=== PATIENT | male | born 1970 | race Caucasian/White ===

== ENCOUNTER 2019-11-02 19:03 | Emergency (ER) | payer OTHER ==
[~2019-11-02] VITALS: Ht 180.3 cm; Wt 83.9 kg
== END 2019-11-02 22:41 | disposition home or self-care (01) ==
LOC: ER 19:03
DX: K52.89 Other specified noninfective gastroenteritis and colitis (principal); Z03.818 Encounter for observation for suspected exposure to other biological agents ruled out; R10.84 Generalized abdominal pain

== ENCOUNTER 2024-02-28 16:26 | Emergency (ER) | payer OTHER ==
[~2024-02-28] VITALS: Ht 180.3 cm; Wt 90.7 kg
[2024-02-28] MEDS ORDERED: 0.9 % SODIUM CHLORIDE 1,000 ML IV STA (17:08)
[2024-02-28 17:30] LABS: HEMATOCRIT 42.8 % (39.0-48.0); HEMOGLOBIN 14.9 g/dL (13-16.00); MEAN CELL VOLUME 87.4 fL (80.0-100.00); MEAN CORPUSCULAR HEMOGLOBIN 30.3 pg (27.00-32.0); MEAN CORPUSCULAR HGB CONC 34.7 g/dl (32.0-36.0); PLATELET COUNT 217 K/uL (150-450); RED CELL DISTRIBUTION WIDTH 13.4 % (11.5-14.5)
[2024-02-28 17:56] LABS: CALCIUM 9.1 mg/dL (8.5-10.1); CREATININE SERUM 1.06 mg/dL (0.70-1.30); GFR 73.08; POTASSIUM 3.87 mEq/L (3.5-5.1)
[2024-02-28] MEDS ORDERED: TAMSULOSIN HCL 0.4 MG CAP PO ONE (18:00)
[2024-02-28 18:09] LABS: URINE APPEARANCE Clear; URINE BILIRRUBIN Negative (NEGATIVE); URINE BLOOD Large; URINE COLOR Yellow; URINE GLUCOSE Negative (NEGATIVE); URINE KETONE Negative (NEGATIVE); URINE LEUKOCYTE Negative; URINE NITRATE Negative; URINE PROTEIN Negative (NEGATIVE); URINE UROBILINOGEN 0.2 E.U./dl
[2024-02-28 18:13] LABS: URINE BACTERIA 18.8 uL (0.0-1933); URINE EPITHELIAL CELLS 4.9 uL (0.0-38.8); URINE RBC 104.4 uL (0.0-20.8)
[2024-02-28 18:16] LABS: URINE CAST 0.91 uL (0.0-1.40)
== END 2024-02-28 19:24 | disposition home or self-care (01) ==
LOC: ER 16:26
PROVIDERS: Emergency Medicine
DX: K52.89 Other specified noninfective gastroenteritis and colitis (principal); Z88.6 Allergy status to analgesic agent; N23 Unspecified renal colic; N20.1 Calculus of ureter; N20.0 Calculus of kidney

== ENCOUNTER 2024-06-25 17:11 | Emergency (ER) | payer OTHER ==
[~2024-06-25] VITALS: Ht 180.3 cm; Wt 90.7 kg
[2024-06-25] MEDS ORDERED: TAMSULOSIN HCL 0.4 MG CAP PO ONE (18:00)
[2024-06-25] MEDS ORDERED: FAMOtidine 10 MG/ML (4ML VIAL) IV PUSH ONE (18:00)
[2024-06-25] MEDS ORDERED: TRAMADOL HCL 50 MG TABLET PO ONE (18:00)
[2024-06-25] MEDS ORDERED: CEFTRIAXONE SODIUM 1,000 MG VIAL IV ONE (18:00)
[2024-06-25] MEDS ORDERED: MORPHINE SULFATE 2 MG/ML SYRINGE IV ONE (18:15)
[2024-06-25] MEDS ORDERED: ONDANSETRON HCL 2 MG/ML VIAL IV ONE (18:15)
[2024-06-25 18:21] LABS: HEMOGLOBIN 14.7 g/dL (13-16.00); MEAN CORPUSCULAR HEMOGLOBIN 29.8 pg (27.00-32.0); MEAN CORPUSCULAR HGB CONC 34.3 g/dl (32.0-36.0); PLATELET COUNT 226 K/uL (150-450); RED BLOOD COUNT 4.94 M/uL (4.00-6.00); RED CELL DISTRIBUTION WIDTH 14.1 % (11.5-14.5)
[2024-06-25 18:44] LABS: ALBUMIN 3.9 gm/dL (3.4-5.0); BILIRUBIN TOTAL 0.37 mg/dL (0.3-1.2); CALCIUM 9.2 mg/dL (8.5-10.1); CREATININE SERUM 1.18 mg/dL (0.70-1.30); GFR 64.33; GLOBULINA 3.5 G/DL (2.4-3.5); POTASSIUM 4.04 mEq/L (3.5-5.1); TOTAL PROTEIN 7.4 gm/dL (6.4-8.2)
[2024-06-25 19:03] LABS: INR 1.04; PARTIAL THROMBOPLASTIN TIME 24.9 SECONDS (22.0-34.0); PROTHROMBIN TIME 11.3 SECONDS (9.0-11.5)
[2024-06-25 19:33] LABS: URINE APPEARANCE Cloudy; URINE BILIRRUBIN Negative (NEGATIVE); URINE BLOOD Large; URINE COLOR Yellow; URINE GLUCOSE Negative (NEGATIVE); URINE KETONE Negative (NEGATIVE); URINE LEUKOCYTE Negative; URINE NITRATE Negative; URINE PROTEIN Trace (NEGATIVE); URINE UROBILINOGEN 0.2 E.U./dl
[2024-06-25 19:36] LABS: URINE BACTERIA 69.7 uL (0.0-1933); URINE EPITHELIAL CELLS 3.3 uL (0.0-38.8); URINE RBC 289.4 uL (0.0-20.8)
[2024-06-25 19:48] LABS: URINE CAST 0.14 uL (0.0-1.40)
[2024-06-25] MEDS ORDERED: ZOFRAN8 MG PO (20:39)
[2024-06-25] MEDS ORDERED: TAMS0.4C PO (20:39)
[2024-06-25] MEDS ORDERED: BACTRIM DS TAB1 EACH PO (20:39)
[2024-06-25] MEDS ORDERED: NORFLEX100MG PO (20:39)
[2024-06-25] MEDS ORDERED: PEPCID AC20 MG PO (20:39)
== END 2024-06-25 20:49 | disposition home or self-care (01) ==
LOC: ER 17:14
PROVIDERS: General Practice
DX: N20.2 Calculus of kidney with calculus of ureter (principal); Z88.6 Allergy status to analgesic agent

== ENCOUNTER 2024-12-16 10:49 | Emergency (ER) | payer OTHER ==
[~2024-12-16] VITALS: Ht 180.3 cm; Wt 88.5 kg
[~2024-12-16 10:49] MED LIST: BACTRIM DS TAB1 EACH PO; NORFLEX100MG PO; PEPCID AC20 MG PO; TAMS0.4C PO; ZOFRAN8 MG PO
[2024-12-16] MEDS ORDERED: MORPHINE SULFATE 4 MG/ML CARTRIDGE IV STA (13:03)
[2024-12-16] MEDS ORDERED: FAMOTIDINE/PF 20 MG/2 ML VIAL IV STA (13:03)
[2024-12-16 13:43] LABS: BASO % 0.5 % (0.1-1.2); EOS # 0.30 (0.04-0.54); EOS % 2.6 % (0.7-7.0); LYMPH # 1.62 (1.18-3.74); LYMPH % 14.1 % (19.3-53.1); MEAN PLATELET VOLUME 10.30 fl (9.4-12.4); MONO # 0.89 (0.24-0.82); MONO % 7.7 % (4.7-12.5); NEUT # 8.62 (1.56-6.13); NEUT % 74.8 % (34.0-71.1); RED CELL DISTRIBUTION WIDTH 12.8 % (11.6-14.4)
[2024-12-16 13:53] LABS: URINE APPEARANCE Clear; URINE BILIRRUBIN Negative (NEGATIVE); URINE BLOOD Moderate; URINE COLOR Yellow; URINE GLUCOSE Negative (NEGATIVE); URINE KETONE Negative (NEGATIVE); URINE LEUKOCYTE Negative; URINE NITRATE Negative; URINE PROTEIN Negative (NEGATIVE); URINE UROBILINOGEN 0.2 E.U./dl
[2024-12-16 14:05] LABS: ALT/SGPT 215.0 U/L (12-78); AST/SGOT 84.0 U/L (15-37); BILIRUBIN TOTAL 0.52 mg/dL (0.3-1.2); BUN CREA RATIO 12.0 (7.0-25.0); CREATININE SERUM 1.94 mg/dL (0.70-1.30); GFR 36.24; GLOBULINA 4.3 G/DL (2.4-3.5); GLUCOSE FASTING 105.0 mg/dL (65-100); OSMOLALITY SERUM 288.0 MOSM/KG (275-295)
[2024-12-16 14:17] LABS: URINE WBC 0-2 /hpf
[2024-12-16 14:18] LABS: URINE BACTERIA SOME; URINE CRYSTALS FEW /HPF; URINE EPITHELIAL CELLS 0-4 /HPF
[2024-12-16] MEDS ORDERED: TAMSULOSIN HCL 0.4 MG CAP PO STA (16:08)
[2024-12-16] MEDS ORDERED: CIPROFLOXACIN IN 5 % DEXTROSE 400 MG/200 ML PIGGYBAG IV STA (16:08)
== END 2024-12-16 17:49 | disposition home or self-care (01) ==
LOC: ER 10:49
PROVIDERS: General Practice
DX: R10.9 Unspecified abdominal pain (principal); Z87.442 Personal history of urinary calculi; Z88.6 Allergy status to analgesic agent; N13.2 Hydronephrosis with renal and ureteral calculous obstruction